=== PATIENT | female | born 1945 | race Caucasian/White ===

== ENCOUNTER 2023-07-18 20:04 | Inpatient (IN) | payer BC, MEDICAID ==
[~2023-07-18] VITALS: Ht 162.6 cm; Wt 107.5 kg
[2023-07-18 20:09] VITALS: BP 140/64; PULSE 92; RESP 16; TEMP 98.5; O2SAT 98
[2023-07-18 21:59] LABS: BASOPHILS # (AUTO) 0.1 K/uL (0.00-0.22); BASOPHILS % (AUTO) 0.6 % (0.0-2.0); EOSINOPHILS # (AUTO) 0.4 K/uL (0-0.4); EOSINOPHILS % (AUTO) 4.6 % (0.0-4.0); HEMATOCRIT 38.5 % (36-48); HEMOGLOBIN 12.3 g/dL (12.0-16.0); LYMPHOCYTES # (AUTO) 1.2 K/uL (2.5-16.5); LYMPHOCYTES % (AUTO) 15.2 % (20.5-51.1); MEAN CORPUSCULAR HEMOGLOBIN 27 pg (27-31); MEAN CORPUSCULAR HGB CONC 32 g/dL (33-37); MEAN CORPUSCULAR VOLUME 84.4 fL (80-94); MONOCYTES # (AUTO) 0.6 K/uL (0.8-1.0); MONOCYTES % (AUTO) 6.9 % (1.7-9.3); NEUTROPHILS # (AUTO) 5.9 K/uL (1.8-7.7); NEUTROPHILS % (AUTO) 72.7 % (42.2-75.2); PLATELET COUNT (AUTO) 189 K/uL (140-450); RED BLOOD CELL COUNT(AUTO) 4.56 MIL/uL (4.20-5.40); WHITE BLOOD COUNT (AUTO) 8.1 K/uL (4.8-10.8)
[2023-07-18 22:28] LABS: INR 1.16 (0.8-1.2); PROTHROMBIN TIME 12.1 secs (10.8-13.4)
[2023-07-18 22:36] LABS: ALANINE AMINOTRANSFERASE 32 U/L (12-78); ALBUMIN 3.5 g/dL (3.4-5.0); ALKALINE PHOSPHATASE 94 U/L (50-136); ANION GAP 13.7 (8-16); ASPARTATE AMINOTRANSFERASE 64 U/L (15-37); CARBON DIOXIDE 27.1 mmol/L (21-32); CHLORIDE 102 mmol/L (98-107); CREATININE 1.6 mg/dL (0.6-1.3); GLUCOSE 117 mg/dL (74-106); POTASSIUM 3.8 mmol/L (3.5-5.1); SODIUM SERUM 139 mmol/L (136-145); TOTAL BILIRUBIN 0.7 mg/dL (0.0-1.0); TOTAL PROTEIN, SERUM 7.2 g/dL (6.4-8.2); UREA NITROGEN, BLOOD 38 mg/dL (7-18)
[2023-07-19] VITALS (7 sets, daily range): BP systolic 120–151; BP diastolic 52–70; PULSE 72–97; RESP 16–19; TEMP 96.6–98.1; O2SAT 93–99
[2023-07-19] MEDS ORDERED: LORazepam 2 MG/ML VIAL IVP PRN (07:25)
[2023-07-19] MEDS ORDERED: DOCUSATE SODIUM 100 MG GELCAP PO PRN (07:25)
[2023-07-19] MEDS ORDERED: ONDANSETRON 4 MG/2 ML VIAL IVP PRN (07:25)
[2023-07-19] MEDS ORDERED: POTASSIUM CHLORIDE 10 MEQ TABER PO PRN (07:25)
[2023-07-19] MEDS ORDERED: ACETAMINOPHEN 325 MG TAB PO PRN (07:25)
[2023-07-19] MEDS ORDERED: INSULIN LISPRO SLIDING SCALE 100 UNITS/ML VIAL SUBQ PRN (08:45)
[2023-07-19] MEDS ORDERED: DEXTROSE 50% 50 ML SYR IVP PRN (08:45)
[2023-07-19] MEDS: ECOTRIN 81 MG TABEC PO SCH (08:59)
[2023-07-19] MEDS ORDERED: FUROSEMIDE 20 MG/2 ML VIAL IVP SCH (09:00)
[2023-07-19] MEDS: MORPHINE SULFATE 2 MG/ML SYR IVP PRN ×3 (11:35→22:47)
[2023-07-19] MEDS: BLOOD GLUCOSE MONITORING 1 DEV DEV FS SCH ×3 (12:06→20:36)
[2023-07-19] MEDS: carvediloL 6.25 MG TAB PO SCH (20:36)
[2023-07-20] VITALS (7 sets, daily range): BP systolic 116–145; BP diastolic 56–71; PULSE 67–86; RESP 18–20; TEMP 97–97.5; O2SAT 94–99
[2023-07-20] MEDS: ZOLPIDEM 10 MG TAB PO PRN (00:48)
[2023-07-20] MEDS: MORPHINE SULFATE 2 MG/ML SYR IVP PRN ×2 (04:52→10:00)
[2023-07-20 06:38] LABS: ANION GAP 11.2 (8-16); CALCIUM 8.7 mg/dL (8.5-10.1); CARBON DIOXIDE 27.4 mmol/L (21-32); CHLORIDE 105 mmol/L (98-107); CREATININE 0.8 mg/dL (0.6-1.3); GLUCOSE 123 mg/dL (74-106); POTASSIUM 3.6 mmol/L (3.5-5.1); SODIUM SERUM 140 mmol/L (136-145); UREA NITROGEN, BLOOD 20 mg/dL (7-18)
[2023-07-20] MEDS: BLOOD GLUCOSE MONITORING 1 DEV DEV FS SCH ×4 (06:43→20:44)
[2023-07-20 07:00] LABS: BASOPHILS # (AUTO) 0.1 K/uL (0.00-0.22); EOSINOPHILS # (AUTO) 0.4 K/uL (0-0.4); EOSINOPHILS % (AUTO) 5.3 % (0.0-4.0); HEMATOCRIT 34.9 % (36-48); HEMOGLOBIN 11.2 g/dL (12.0-16.0); LYMPHOCYTES # (AUTO) 1.3 K/uL (2.5-16.5); LYMPHOCYTES % (AUTO) 17.2 % (20.5-51.1); MEAN CORPUSCULAR HEMOGLOBIN 27 pg (27-31); MEAN CORPUSCULAR HGB CONC 32 g/dL (33-37); MEAN CORPUSCULAR VOLUME 84.5 fL (80-94); MONOCYTES # (AUTO) 0.5 K/uL (0.8-1.0); MONOCYTES % (AUTO) 6.7 % (1.7-9.3); NEUTROPHILS # (AUTO) 5.4 K/uL (1.8-7.7); NEUTROPHILS % (AUTO) 69.8 % (42.2-75.2); PLATELET COUNT (AUTO) 156 K/uL (140-450); RED BLOOD CELL COUNT(AUTO) 4.13 MIL/uL (4.20-5.40); RED CELL DISTRIBUTION WIDTH 15.9 % (11.6-13.7); WHITE BLOOD COUNT (AUTO) 7.7 K/uL (4.8-10.8)
[2023-07-20] MEDS: MAG SULF 2000 MG/WATER PREMIX 50 ML IV PRN (09:50)
[2023-07-20] MEDS: carvediloL 6.25 MG TAB PO SCH ×2 (09:50→20:33)
[2023-07-20] MEDS: ECOTRIN 81 MG TABEC PO SCH (09:52)
[2023-07-20] MEDS: oxyCODONE 5 MG TAB PO PRN ×2 (12:35→22:03)
[2023-07-20] MEDS ORDERED: MORPHINE SULFATE 2 MG/ML SYR IVP PRN (18:30)
[2023-07-21] MEDS: ZOLPIDEM 10 MG TAB PO PRN
[2023-07-21 04:00] VITALS: BP 128/64; PULSE 80; RESP 18; TEMP 98.4; O2SAT 99
[2023-07-21 06:13] LABS: BASOPHILS # (AUTO) 0.1 K/uL (0.00-0.22); BASOPHILS % (AUTO) 0.8 % (0.0-2.0); EOSINOPHILS # (AUTO) 0.3 K/uL (0-0.4); EOSINOPHILS % (AUTO) 4.9 % (0.0-4.0); HEMATOCRIT 35.2 % (36-48); HEMOGLOBIN 11.3 g/dL (12.0-16.0); LYMPHOCYTES # (AUTO) 1.1 K/uL (2.5-16.5); LYMPHOCYTES % (AUTO) 15.5 % (20.5-51.1); MEAN CORPUSCULAR HEMOGLOBIN 27 pg (27-31); MEAN CORPUSCULAR HGB CONC 32 g/dL (33-37); MEAN CORPUSCULAR VOLUME 84.6 fL (80-94); MONOCYTES # (AUTO) 0.4 K/uL (0.8-1.0); MONOCYTES % (AUTO) 6.4 % (1.7-9.3); NEUTROPHILS # (AUTO) 5.1 K/uL (1.8-7.7); NEUTROPHILS % (AUTO) 72.4 % (42.2-75.2); PLATELET COUNT (AUTO) 161 K/uL (140-450); RED BLOOD CELL COUNT(AUTO) 4.16 MIL/uL (4.20-5.40)
[2023-07-21 06:36] LABS: ANION GAP 6.5 (8-16); CALCIUM 9.1 mg/dL (8.5-10.1); CARBON DIOXIDE 32.1 mmol/L (21-32); CHLORIDE 105 mmol/L (98-107); CREATININE 0.8 mg/dL (0.6-1.3); GLUCOSE 133 mg/dL (74-106); POTASSIUM 3.6 mmol/L (3.5-5.1); SODIUM SERUM 140 mmol/L (136-145); UREA NITROGEN, BLOOD 13 mg/dL (7-18)
[2023-07-21] MEDS: BLOOD GLUCOSE MONITORING 1 DEV DEV FS SCH ×2 (07:35→11:30)
[2023-07-21 07:49] VITALS: PULSE 72
[2023-07-21 07:50] VITALS: RESP 20; O2SAT 100
[2023-07-21 08:00] VITALS: BP 143/68; PULSE 64; RESP 18; TEMP 97.7; O2SAT 98
[2023-07-21 08:03] VITALS: O2SAT 97
[2023-07-21 08:06] VITALS: PULSE 75; RESP 18; O2SAT 100
[2023-07-21] MEDS: carvediloL 6.25 MG TAB PO SCH (09:05)
[2023-07-21] MEDS: ECOTRIN 81 MG TABEC PO SCH (09:05)
[2023-07-21] MEDS: MAG SULF 2000 MG/WATER PREMIX 50 ML IV PRN (09:06)
[2023-07-21] MEDS ORDERED: CARV6.252 PO (10:42)
[2023-07-21] MEDS ORDERED: ASPI-1822 PO (10:42)
== END 2023-07-21 14:30 | disposition home health service (06) | DRG 555 ==
LOC: MED 20:04 → MTU 07-19 02:22
PROVIDERS: ADMIT Family Medicine; ATTEND Family Medicine
DX: M25.552 Pain in left hip (principal); N17.0 Acute kidney failure with tubular necrosis; M25.551 Pain in right hip; I25.10 Atherosclerotic heart disease of native coronary artery without angina pectoris; R74.01 Elevation of levels of liver transaminase levels; I50.9 Heart failure, unspecified; I11.0 Hypertensive heart disease with heart failure; E11.9 Type 2 diabetes mellitus without complications
CPT/HCPCS: 36415; 71045; 73562; 80048; 80053; 82948; 83735; 83880; 84484; 85025; 85610; 85730; 87081; 93005; 97112; 97116; 97530; 99285; J1815; J1940; J2270; J3475; Q0092

== ENCOUNTER 2024-01-04 19:09 | Observation (INO) | payer OTHER, MEDICAID ==
[~2024-01-04] VITALS: Ht 162.6 cm; Wt 103.4 kg
[2024-01-04 19:09] VITALS: BP 124/65; PULSE 70; RESP 18; TEMP 98; O2SAT 95
[~2024-01-04 19:09] MED LIST: ASPI-1822 PO; CARV6.252 PO
[2024-01-04 19:52] LABS: BASOPHILS # (AUTO) 0.1 K/uL (0.00-0.22); BASOPHILS % (AUTO) 1.2 % (0.0-2.0); EOSINOPHILS # (AUTO) 0.3 K/uL (0-0.4); EOSINOPHILS % (AUTO) 3.8 % (0.0-4.0); HEMOGLOBIN 11.7 g/dL (12.0-16.0); LYMPHOCYTES # (AUTO) 1.3 K/uL (2.5-16.5); LYMPHOCYTES % (AUTO) 19.3 % (20.5-51.1); MEAN CORPUSCULAR HEMOGLOBIN 28 pg (27-31); MEAN CORPUSCULAR HGB CONC 33 g/dL (33-37); MEAN CORPUSCULAR VOLUME 86.8 fL (80-94); MONOCYTES # (AUTO) 0.5 K/uL (0.8-1.0); MONOCYTES % (AUTO) 7.1 % (1.7-9.3); NEUTROPHILS # (AUTO) 4.7 K/uL (1.8-7.7); NEUTROPHILS % (AUTO) 68.6 % (42.2-75.2); PLATELET COUNT (AUTO) 186 K/uL (140-450); RED BLOOD CELL COUNT(AUTO) 4.15 MIL/uL (4.20-5.40); RED CELL DISTRIBUTION WIDTH 15.3 % (11.6-13.7); WHITE BLOOD COUNT (AUTO) 6.8 K/uL (4.8-10.8)
[2024-01-04] MEDS: MORPHINE SULFATE 4 MG/ML SYR IVP ONE (19:53)
[2024-01-04 20:04] LABS: ANION GAP 6.7 (8-16); CALCIUM 9.7 mg/dL (8.5-10.1); CARBON DIOXIDE 36.1 mmol/L (21-32); CHLORIDE 101 mmol/L (98-107); CREATININE 1.3 mg/dL (0.6-1.3); GLUCOSE 119 mg/dL (74-106); POTASSIUM 3.8 mmol/L (3.5-5.1); SODIUM SERUM 140 mmol/L (136-145); UREA NITROGEN, BLOOD 25 mg/dL (7-18)
[2024-01-04] MEDS ORDERED: KCL 20 MEQ IN 100 mL PREMIX 200 ML IV PRN ×2 (20:55→21:15)
[2024-01-04] MEDS ORDERED: POTASSIUM CHLORIDE 10 MEQ TABER PO PRN ×2 (20:55→21:15)
[2024-01-04] MEDS ORDERED: MORPHINE SULFATE 2 MG/ML SYR IVP PRN (20:55)
[2024-01-04] MEDS ORDERED: ACETAMINOPHEN 325 MG TAB PO PRN ×2 (20:55→21:15)
[2024-01-04] MEDS ORDERED: MAG SULF 2000 MG/WATER PREMIX 50 ML IV PRN ×2 (20:55→21:15)
[2024-01-04] MEDS ORDERED: HYDROcodone/APAP 5/325 MG 1 TAB TAB PO PRN (20:55)
[2024-01-04] MEDS ORDERED: MAGNESIUM OXIDE 400 MG TAB PO PRN (20:55)
[2024-01-04] MEDS ORDERED: ONDANSETRON 4 MG/2 ML VIAL IVP PRN ×2 (20:55→21:15)
[2024-01-04] MEDS ORDERED: ALEN70TA85 PO (21:18)
[2024-01-04] MEDS ORDERED: DULO60EC1 PO (21:18)
[2024-01-04] MEDS ORDERED: ATOR40TA PO (21:18)
[2024-01-04] MEDS ORDERED: GLIP5TER PO (21:18)
[2024-01-04] MEDS ORDERED: FURO-570 PO (21:18)
[2024-01-04] MEDS ORDERED: OXYC5TAB4 PO (21:18)
[2024-01-04] MEDS ORDERED: DULA3PEN SQ (21:18)
[2024-01-05 06:32] LABS: BASOPHILS # (AUTO) 0.1 K/uL (0.00-0.22); BASOPHILS % (AUTO) 1.4 % (0.0-2.0); EOSINOPHILS # (AUTO) 0.1 K/uL (0-0.4); EOSINOPHILS % (AUTO) 2.6 % (0.0-4.0); HEMATOCRIT 33.2 % (36-48); HEMOGLOBIN 10.9 g/dL (12.0-16.0); LYMPHOCYTES # (AUTO) 1.5 K/uL (2.5-16.5); LYMPHOCYTES % (AUTO) 27.1 % (20.5-51.1); MEAN CORPUSCULAR HEMOGLOBIN 28 pg (27-31); MEAN CORPUSCULAR HGB CONC 33 g/dL (33-37); MEAN CORPUSCULAR VOLUME 86.2 fL (80-94); MONOCYTES # (AUTO) 0.3 K/uL (0.8-1.0); MONOCYTES % (AUTO) 5.6 % (1.7-9.3); NEUTROPHILS # (AUTO) 3.6 K/uL (1.8-7.7); NEUTROPHILS % (AUTO) 63.3 % (42.2-75.2); PLATELET COUNT (AUTO) 160 K/uL (140-450); RED BLOOD CELL COUNT(AUTO) 3.86 MIL/uL (4.20-5.40); RED CELL DISTRIBUTION WIDTH 15.4 % (11.6-13.7); WHITE BLOOD COUNT (AUTO) 5.7 K/uL (4.8-10.8)
[2024-01-05 07:00] LABS: ALANINE AMINOTRANSFERASE 20 U/L (12-78); ALKALINE PHOSPHATASE 84 U/L (50-136); ANION GAP 7.6 (8-16); ASPARTATE AMINOTRANSFERASE 17 U/L (15-37); CALCIUM 9.6 mg/dL (8.5-10.1); CARBON DIOXIDE 33.2 mmol/L (21-32); CHLORIDE 103 mmol/L (98-107); GLUCOSE 105 mg/dL (74-106); MAGNESIUM 1.8 mg/dL (1.8-2.4); POTASSIUM 3.8 mmol/L (3.5-5.1); SODIUM SERUM 140 mmol/L (136-145); TOTAL BILIRUBIN 0.2 mg/dL (0.0-1.0); TOTAL PROTEIN, SERUM 7.2 g/dL (6.4-8.2); UREA NITROGEN, BLOOD 24 mg/dL (7-18)
[2024-01-05] MEDS ORDERED: ASPIRIN 81 MG TAB.CHEW PO SCH (09:00)
[2024-01-05] MEDS ORDERED: ATORVASTATIN 20 MG TAB PO SCH (09:00)
[2024-01-05 09:13] VITALS: PULSE 92; RESP 18; O2SAT 95
[2024-01-05] MEDS: HYDROcodone/APAP 5/325 MG 1 TAB TAB PO PRN (10:30)
[2024-01-05] MEDS: ATORVASTATIN 20 MG TAB PO SCH (10:31)
[2024-01-05] MEDS: ASPIRIN 81 MG TAB.CHEW PO SCH (10:31)
[2024-01-05 11:20] VITALS: PULSE 92; RESP 18; O2SAT 95
[2024-01-05] MEDS: BLOOD GLUCOSE MONITORING 1 DEV DEV FS SCH (11:30)
[2024-01-05] MEDS ORDERED: INSULIN LISPRO SLIDING SCALE 100 UNITS/ML VIAL SUBQ PRN (11:35)
[2024-01-05] MEDS ORDERED: DEXTROSE 50% 50 ML SYR IVP PRN (11:35)
[2024-01-05 12:00] VITALS: BP 125/69; PULSE 65; RESP 18; TEMP 97.6; O2SAT 94
[2024-01-05] MEDS: MORPHINE SULFATE 2 MG/ML SYR IVP PRN (12:38)
[2024-01-05 16:00] VITALS: BP 141/75; PULSE 73; RESP 18; TEMP 97.6; O2SAT 94
[2024-01-05 20:00] VITALS: BP 150/64; PULSE 72; RESP 16; TEMP 98.4; O2SAT 96
[2024-01-05] MEDS: MAGNESIUM OXIDE 400 MG TAB PO PRN (23:12)
[2024-01-06 04:00] VITALS: BP 155/80; PULSE 72; TEMP 97.8
[2024-01-06 06:54] LABS: ALANINE AMINOTRANSFERASE 17 U/L (12-78); ALBUMIN 3.1 g/dL (3.4-5.0); ALKALINE PHOSPHATASE 86 U/L (50-136); ANION GAP 7.8 (8-16); ASPARTATE AMINOTRANSFERASE 22 U/L (15-37); CALCIUM 9.4 mg/dL (8.5-10.1); CARBON DIOXIDE 33.8 mmol/L (21-32); CHLORIDE 101 mmol/L (98-107); CREATININE 0.8 mg/dL (0.6-1.3); GLUCOSE 100 mg/dL (74-106); MAGNESIUM 1.6 mg/dL (1.8-2.4); POTASSIUM 3.6 mmol/L (3.5-5.1); SODIUM SERUM 139 mmol/L (136-145); TOTAL BILIRUBIN 0.4 mg/dL (0.0-1.0); TOTAL PROTEIN, SERUM 6.7 g/dL (6.4-8.2); UREA NITROGEN, BLOOD 15 mg/dL (7-18)
[2024-01-06 07:44] LABS: HEMATOCRIT 35.4 % (36-48); HEMOGLOBIN 11.7 g/dL (12.0-16.0); MEAN CORPUSCULAR HEMOGLOBIN 29 pg (27-31); MEAN CORPUSCULAR HGB CONC 33 g/dL (33-37); MEAN CORPUSCULAR VOLUME 85.9 fL (80-94); PLATELET COUNT (AUTO) 190 K/uL (140-450); RED BLOOD CELL COUNT(AUTO) 4.12 MIL/uL (4.20-5.40); RED CELL DISTRIBUTION WIDTH 15.2 % (11.6-13.7); WHITE BLOOD COUNT (AUTO) 7.7 K/uL (4.8-10.8)
[2024-01-06 08:00] VITALS: BP 172/63; PULSE 81; RESP 18; TEMP 97.6; O2SAT 99
[2024-01-06] MEDS ORDERED: hydrALAZINE 25 MG TAB PO PRN (08:45)
[2024-01-06 09:00] VITALS: BP 168/70; PULSE 80
[2024-01-06 09:09] LABS: EOSINOPHILS % (MANUAL) 2 % (0-4); MONOCYTES % (MANUAL) 6 % (5-12)
[2024-01-06] MEDS: carvediloL 6.25 MG TAB PO SCH (09:09)
[2024-01-06] MEDS: FUROSEMIDE 40 MG TAB PO SCH (09:09)
[2024-01-06 09:10] LABS: LYMPHOCYTES % (MANUAL) 23 % (20-46)
[2024-01-06] MEDS: LIDOCAINE 5% 1 EA PATCH TP SCH (09:11)
[2024-01-06 09:30] VITALS: BP 168/70
[2024-01-06 10:00] VITALS: BP 132/73; PULSE 82
[2024-01-06] MEDS ORDERED: CYCL-711 PO (12:01)
[2024-01-06 13:05] VITALS: BP 135/62; PULSE 81; RESP 18; TEMP 97.6
== END 2024-01-06 17:45 | disposition home or self-care (01) ==
LOC: MED 19:09 → MMU 20:54 → MED 20:57 → MMU 20:57 → MED 21:01 → MMU 01-05 06:50
PROVIDERS: ADMIT Student in an Organized Health Care Education/Training Program; ATTEND Student in an Organized Health Care Education/Training Program
DX: M94.0 Chondrocostal junction syndrome [Tietze] (principal); I11.0 Hypertensive heart disease with heart failure; I50.32 Chronic diastolic (congestive) heart failure; M54.9 Dorsalgia, unspecified; J45.909 Unspecified asthma, uncomplicated; E11.9 Type 2 diabetes mellitus without complications; E78.5 Hyperlipidemia, unspecified; I25.10 Atherosclerotic heart disease of native coronary artery without angina pectoris; Z79.899 Other long term (current) drug therapy
CPT/HCPCS: 36415; 71045; 72131; 80048; 80053; 82948; 83735; 83880; 84484; 85025; 87081; 93005; 96372; 96374; 96375; 96376; 99285; G0378; J1644; J1815; J2270; Q0092

== ENCOUNTER 2024-04-30 23:43 | Emergency (ER) | payer MEDICARE, MEDICAID ==
[~2024-04-30] VITALS: Ht 165.1 cm; Wt 104.3 kg
[~2024-04-30 23:43] MED LIST changes: +ALEN70TA85 PO; +ATOR40TA PO; +CYCL-711 PO; +DULA3PEN SQ; +DULO60EC1 PO; +FURO-570 PO; +GLIP5TER PO; +OXYC5TAB4 PO
[2024-04-30 23:57] VITALS: BP 135/68; PULSE 68; RESP 14; TEMP 98.5; O2SAT 98
[2024-05-01] MEDS: KETOROLAC 30 MG/ML VIAL IM ONE (01:38)
[2024-05-01 10:25] VITALS: BP 147/72; PULSE 81; RESP 18; TEMP 98.5; O2SAT 98
== END 2024-05-01 10:27 | disposition home or self-care (01) ==
LOC: MED 23:43
DX: S76.012A Strain of muscle, fascia and tendon of left hip, initial encounter (principal); S46.912A Strain of unspecified muscle, fascia and tendon at shoulder and upper arm level, left arm, initial encounter; J45.909 Unspecified asthma, uncomplicated; I11.0 Hypertensive heart disease with heart failure; I50.9 Heart failure, unspecified; E11.9 Type 2 diabetes mellitus without complications; Z86.69 Personal history of other diseases of the nervous system and sense organs; Z79.84 Long term (current) use of oral hypoglycemic drugs; Z79.82 Long term (current) use of aspirin; Z79.899 Other long term (current) drug therapy; W18.39XA Other fall on same level, initial encounter; Y93.89 Activity, other specified; Y92.89 Other specified places as the place of occurrence of the external cause; Y99.8 Other external cause status
CPT/HCPCS: 73030; 73501; 96372; 99285; J1885; Q0092